=== PATIENT | female | born 1980 | race Caucasian/White ===

== ENCOUNTER 2021-11-28 17:30 | Inpatient (IN) | payer OTHER, SELFPAY ==
[2021-11-28] VITALS (13 sets, daily range): BP systolic 124–175; BP diastolic 70–107; PULSE 72–108; RESP 12–18; TEMP 36.5–37.2; O2SAT 98–100; BMI 45.2; BMI 43.1
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
[2021-11-28] MEDS: Ondansetron 4 MG/2 ML Vial IV (18:27)
[2021-11-28] MEDS: Morphine 4 MG/ML Syringe IV (18:27)
--- NOTE | 2021-11-28 18:33 | RAD_ITS ---
STUDY: LEFT ANKLE X-RAY SERIES OF 1830 HOURS ON 11/28/2021 REASON FOR EXAM: 41-year-old female with injury to left ankle. TECHNIQUE: 3 view(s) of the ankle. COMPARISON: None. FINDINGS: There is an oblique fracture of the distal left fibula at 8.7 cm proximal to the tip of the fibular head. There has been significant ligamentous injury of the ankle joint because the ankle mortise is unbalanced with 1.4 cm separation of the medial malleolus from the talus. There is no evidence of fractures of the distal tibia, talus, or calcaneus. Moderate circumferential soft tissue swelling is noted. RAD/Ankle min 3 Views IMPRESSION: 1. Oblique fracture of the distal left fibula at 8.7 cm proximal to the tip of the fibular head. 2. Significant ligamentous injury of the ankle joint that is unbalanced with 1.4 similar separation of the medial malleolus from the talus. 3. No evidence of fractures of the distal tibia, talus or calcaneus. 4. Moderate circumferential soft tissue swelling. Electronically Signed: Louie Peacock MD at 18:54 EDT ,
[2021-11-28] MEDS: 0.9% Normal Saline 1,000 ML 999 ML IV (20:55)
[2021-11-28] MEDS: fentaNYL 100 MCG/2 ML Ampul 50 MCG IV (20:57)
[2021-11-28] MEDS: Midazolam 5 MG/ML Syringe IV (20:57)
--- NOTE | 2021-11-28 21:46 | RAD_ITS ---
STUDY: LEFT ANKLE X-RAY SERIES OF 2126 HOURS ON 11/28/2021 REASON FOR EXAM: 41-year-old female status post reduction views of balanced ankle mortise and a distal fibular diaphyseal fracture. TECHNIQUE: 2 view(s) of the ankle. COMPARISON: None. FINDINGS: There has been interval reduction of the distal diaphyseal fibular fracture, which is now in anatomic position. The ankle mortise now appears to be balanced. There is no separation of the inside of the medial malleolus from the talus. The entire ankle is enveloped in cast material. RAD/Ankle 2 Views IMPRESSION: 1. Interval reduction of the distal diaphyseal fibular fracture--currently in anatomic position. 2. Ankle mortise is now balance. 3. Ankle is enveloped in cast material. Electronically Signed: Louie Peacock MD at 22:23 EDT ,
[2021-11-28] MEDS: Acetaminophen 325 MG Tablet 650 MG PO (23:37)
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
[2021-11-29] MEDS: oxyCODONE 5 MG Tablet PO ×4 (02:26→15:03)
[2021-11-29 03:00] VITALS: BP 136/63; PULSE 62; RESP 18; TEMP 36.2; O2SAT 100
[2021-11-29] MEDS: Acetaminophen 325 MG Tablet 650 MG PO ×3 (06:24→15:04)
[2021-11-29 07:08] VITALS: O2SAT 98
[2021-11-29 07:57] LABS: Absolute Lymphocyte Count 3.39 X10^3/uL (0.83-4.51); Absolute Neutrophil Count 4.1 X10^3/uL (2.0-7.7); Basophil# 0.03 X10^3/uL; Basophil% 0.4 % (0-1); Eosinophil# 0.18 X10^3/uL; Eosinophils% 2.2 % (0-5); Hematocrit 40.1 % (37-47); Hemoglobin 12.2 g/dL (12.0-15.0); Lymphocyte # 3.39 X10^3/ul (0.83-4.51); Lymphocyte % 40.8 % (19-41); Mean Corp Hgb Conc 30.4 g/dL (32-36); Mean Corpuscular Hgb 24.1 pg (27.0-32.0); Mean Corpuscular Volume 79.1 fL (81-99); Mean Platelet Vol. 10.8 fl (6.2-12.0); Monocyte# 0.54 X10^3/uL; Monocyte% 6.5 % (0-10); NRBC Flagged by Analyzer 0 % (0-5); Neutrophil # 4.14 X10^3/uL (2.7-7.7); Neutrophil % 49.9 % (47-70); Platelet Count 327 K/mm3 (150-450); RBC Distribution Width CV 16.3 % (11.6-14.6); RBC Distribution Width SD 46.6 fl (35.1-43.9); Red Blood Count 5.07 M/mm3 (4.2-5.4); White Blood Count 8.3 K/mm3 (4.4-11.0)
[2021-11-29 08:13] LABS: ALB/GLOB Ratio 0.8 RATIO (0.9-2.4); AST(SGOT) 18 U/L (15-37); Alanine Aminotransfer ALT/SGPT 20 U/L (13-56); Albumin, Serum 2.9 g/dL (3.2-5.0); Alkaline Phosphatase 99 U/L (45-117); Anion Gap 6 (5-15); BUN 7 mg/dL (7-18); BUN/Creat Ratio 11.5 RATIO (10-20); Calcium,Total 8.3 mg/dL (8.5-10.1); Chloride 109 mmol/L (98-107); Creatinine, Serum 0.61 mg/dL (0.55-1.02); EST Glomerular Filtration Rate 114 mL/min (>60); Est Glom Filt Rate - Afr Amer 138 mL/min (>60); Estimated Creatinine Clearance 103.75 ml/min; Globulin 3.8 g/dL (2.2-4.2); Glucose 88 mg/dL (74-106); Potassium 3.8 mmol/L (3.5-5.1); Protein, Total 6.7 g/dL (6.4-8.2); Sodium Level 140 mmol/L (136-145)
[2021-11-29 10:24] VITALS: BP 120/69; PULSE 70; RESP 16; TEMP 36.6; O2SAT 98
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
--- NOTE | 2021-11-29 12:31 | PCM.PN.HOSP ---
Subjective Subjective Patient was seen and examined today, I talked briefly with podiatry concerning the patient's care. Patient states that she has no chronic medical conditions and takes no prescription medications at home. Objective Data Objective Data Vital Signs: Vital Signs Temp Pulse Resp BP Pulse Ox O2 Del Method O2 Flow Rate 97.9 F 70 16 120/69 98 Room Air 2 11/29/21 10:11/29/21 10:11/29/21 10:11/29/21 10:11/29/21 10:11/29/21 10:11/28/21 21:21 Oxygen Flow Rate (L/min) [4] 2 Oxygen Flow Rate (L/min) [3] 2 Oxygen Flow Rate (L/min) [2] 2 Oxygen Flow Rate (L/min) 2 Oxygen Delivery Method [4] Nasal Cannula Oxygen Delivery Method [3] Nasal Cannula Oxygen Delivery Method [2] Nasal Cannula Oxygen Delivery Method [1 ( Room Air Initial Baseline)] Oxygen Delivery Method Room Air Weight: 114 kg Body Mass Index (BMI) 43.1 Intake & Output: Intake and Output for Last 24 Hours 11/27/21 11/28/21 11/29/21 23:59 23:59 23:59 Intake Total 1150 / 1150 200 / 200 Output Total 400 / 400 Balance 1150 / 1150 -200 / -200 Lab / Micro Data Result Diagrams: 11/29/21 06:30 11/29/21 06:30 Labs: Laboratory Results - last 24 hr 11/29/21 06:30: WBC 8.3, RBC 5.07, Hgb 12.2, Hct 40.1, MCV 79.1 L, MCH 24.1 L, MCHC 30.4 L, RDW Std Deviation 46.6 H, RDW Coeff of Stefany 16.3 H, Plt Count 327, MPV 10.8, Immature Gran % (Auto) 0.200, Neut % (Auto) 49.9, Lymph % (Auto) 40.8, [place] % (Auto) 6.5, Eos % (Auto) 2.2, Baso % (Auto) 0.4, Absolute Neuts (auto) 4.1, Absolute Lymphs (auto) 3.39, Nucleated RBC % 0 11/29/21 06:30: Sodium 140, Potassium 3.8, Chloride 109 H, Carbon Dioxide 25.0, Anion Gap 6, BUN 7, Creatinine 0.61, Estim Creat Clear Calc 103.75, Est GFR (MDRD) Af Amer 138, Est GFR (MDRD) Non-Af 114, BUN/Creatinine Ratio 11.5, Glucose 88, Calcium 8.3 L, Total Bilirubin 0.50, AST 18, ALT 20, Alkaline Phosphatase 99, Total Protein 6.7, Albumin 2.9 L, Globulin 3.8, Albumin/Globulin Ratio 0.8 L Radiography Diagnostic Testing: Radiology Impression Ankle X-Ray 11/28/21 18:33 IMPRESSION: 1. Oblique fracture of the distal left fibula at 8.7 cm proximal to the tip of the fibular head. 2. Significant ligamentous injury of the ankle joint that is unbalanced with 1.4 similar separation of the medial malleolus from the talus. 3. No evidence of fractures of the distal tibia, talus or calcaneus. 4. Moderate circumferential soft tissue swelling. Electronically Signed: Louie Peacock MD at 18:54 EDT , Ankle X-Ray 11/28/21 21:46 IMPRESSION: 1. Interval reduction of the distal diaphyseal fibular fracture--currently in anatomic position. 2. Ankle mortise is now balance. 3. Ankle is enveloped in cast material. Electronically Signed: Louie Peacock MD at 22:23 EDT , Physical Exam Const alert, oriented x3, no apparent distress and healthy appearing Constitutional Narrative: Patient is morbidly obese General Appearance: cooperative, well kempt and well developed Orientation / Consciousness: awake, oriented to person, oriented to place and oriented to time HEENT normocephalic and moist oral mucous membranes Eyes PERRL, EOMs intact bilaterally and conjunctivae normal Neck supple, no JVD and thyroid normal General: trachea midline Resp normal respiratory effort and clear to auscultation bilaterally Auscultation: Negative for rales, rhonchi or wheezes Cardio regular rate, regular rhythm, no murmurs, no rub and no gallops GI normal to inspection, nondistended, normoactive bowel sounds, soft to palpation, non-tender and non-distended Extremity Extremity Narrative: Patient has a splint in place over the left lower leg Skin no rashes or lesions noted General Skin Exam: no breakdown Neuro oriented x3, CN's II-XII intact bilaterally, no focal motor deficits and no sensory deficits noted Sensorium / Orientation: awake and alert Speech: speech normal Psych affect normal Assessment & Plan Assessment/Plan (1) Closed displaced bimalleolar fracture of left ankle: PLAN: Plan 1. Morbid obesity-makes care, recovery, management, and prognosis complicated #2 bimalleolar fracture of the left ankle-closed displaced-according to podiatry, it is likely that the patient's surgery will be put off due to swelling from the fracture, she may need to be discharged home with a walker and surgery will be scheduled in the near future. Charges/Coding Visit Charges Inpatient E&M: 98138 Subs Hosp L1
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
--- NOTE | 2021-11-29 13:31 | DS.PCM_ITS ---
Providers Date of Admission: 11/28/21 Date of Discharge: 11/29/21 Primary Care Physician: Dr. Yinka Mittal, DO Consultations 11/29/21 00:03 Consult: Hospitalist Routine Consulting Provider: Lurdes Dominguez Reason for Consult: medical management EMERGENT Consult: No MD Notified: Yes Date Notified: 11/28/21 Time Notified: 23:00 Method of Notification: Text Reason For Visit: LEFT ANKLE FRACTURE Diagnosis Discharge Diagnosis (1) Closed displaced bimalleolar fracture of left ankle: Status: Acute Code(s): S82.842A - Displaced bimalleolar fracture of left lower leg, initial encounter for closed fracture (2) Ankle pain, left: Status: Acute Code(s): M25.572 - Pain in left ankle and joints of left foot Plan Patient seen and evaluated Radiographs were reviewed with patient and I discussed the images and findings with them today. Patient has a displaced bimalleolar fracture of the left ankle. Oblique fibular fracture with disruption of the deltoid ligament m edially and likely syndesmotic injury. This was reduced and splinted in the ED 11/28/2021. She does have ecchymosis about the ankle and medial and lateral foot along with significant edema about the foot and ankle. I discussed with patient and her that with the significant amount of of edema about the ankle and foot that it is not recommended to perform surgical fixation immediately and it would be best to wait for the swelling to decrease prior to definitive surgical fixation. Patient and are in agreement with this. They were instructed to remain nonweightbearing to the left lower extremity with the use of walker or wheelchair. She may shower seated in a shower chair with use of a cast bag to keep the dressings clean, dry, and intact. She may apply ice behind the knee for pain control and elevate the left lower extremity at all times of rest with pillows placed under the foot and leg. Hospitalist has been consulted for any medical management, this is greatly appre ciated. Other than her ankle fracture and obesity she has no other health concerns. I discussed with hospitalist plan to discharge home with pain medication and follow-up in office for surgical discussion. He is in agreement. Physical therapist consulted for walker training and wheelchair to assist in ambulation at home. All questions were answered to patient's satisfaction Patient to be discharged home today and patient will follow-up in office with me later this week for surgical discussion and planning for ORIF of left ankle with syndesmotic repair. Dr. Crispin Nelson Jr. D.P.M. [facility] [phone] The problems addressed require a low medical decision making level which includes two or more minor problems, a stable chronic illness, or an acute uncomplicated illness or injury. The medical decision making level is low. There is noted low risk of morbidity after considering this treatment plan and diagnostic data. Note: [employer] ([employer] speech recognition song and dance performer software was used to create portions of this document. Sound-alike and misspelled words, as well as other song and dance performer errors may be contained in the documentation. Medications at Discharge Home Medications acetaminophen 325 mg capsule (Tylenol) 650 mg PO Q6H PRN pain 7 days #28 caps 11/29/21 oxycodone-acetaminophen 5 mg-325 mg tablet 1 tab PO Q6H PRN pain 7 days #28 tabs 11/29/21 Hospital Course Operations None Procedures None Summary of Care Provided Minutes Spent on Discharge: 25 Hospital Course: Patient was admitted to the hospital in the evening on 11/28/2021 for pain control following displaced bimalleolar fracture of the left lower extremity. She was seen in the ED where the fracture was reduced and splinted. Podiatry seen and evaluated bedside on 11/29/2021 and discussion with patient and regarding her fracture and significant swelling of the left lower extremity, no evidence of fracture blisters. I discussed with them that at this time it would be best to wait for her swelling to decrease prior to any definitive surgical in tervention. Her pain is well controlled this morning and she is in good spirits. Her and her are in agreement in waiting for swelling to decrease prior to surgical intervention. Hospitalist was consulted for medical management, hospitalist in agreement to await surgical intervention to allow the swelling to decrease. Physical therapy was consulted and a walker dispensed to patient for assistance in ambulation prior to discharge. Prescriptions were electronically sent to her pharmacy to manage pain while home. I discussed that she is to be nonweightbearing to the left lower extremity with the assistance of a walker and/or wheelchair. She is to place absolutely no weight to this foot or walk on this foot. She voices understanding of this. Discharge instructions to be sent home with patient outlining our discussion and plan. Patient to be discharged home with and several family members who will be able to aid and look after her this afternoon. Physical Exam Const alert, oriented x3, no apparent distress and well nourished General Appearance: cooperative and comfortable HEENT normocephalic Eyes General Eye: normal appearance of both eyes Neck full ROM General: normal visual inspection Lymph Lymphatic: no lymphadenopathy noted and no lymphedema noted Resp normal respiratory effort Cardio regular rate and regular rhythm GI normal to inspection, nondistended, normoactive bowel sounds Back/Spine no CVA tenderness and normal ROM Extremity Extremity Narrative: Left lower extremity: DP and PT pulses nonpalpable secondary to edema. Capillary refill time is brisk to the digits. Significant edema about the ankle extending into the foot distally. There is ecchymosis about the ankle, lateral foot, medial foot consistent with fracture of the fibula with disruption to the medial Deltoid ligament. No evidence of fracture blisters. No open wounds noted. Range of motion deferred secondary to pain and fracture. Right lower extremity DP and PT pulses are palpable. Capillary fill time is brisk to the digits. Full range of motion to the ankle joint, subtalar joint, and first metatarsophalangeal joint. General Extremity: Negative for calf tenderness Skin no rashes or lesions noted, skin turgor normal and no jaundice Skin Narrative: Left lower extremity skin intact with significant edema about the ankle extending into the foot distally. There is ecchymosis about the ankle, lateral foot, medial foot consistent with fracture of the fibula with disruption to the medial Deltoid ligament. No evidence of fracture blisters. No open wounds noted. Webspaces are C/D/I. Right lower extremity skin intact with no rashes or lesions, no subcutaneous noduels or erythema, no ecchymosis, no open wounds. Webspaces C/D/I. Neuro oriented x3 and moves all extremities Psych cooperative and affect normal Weight / BMI Weight Weight: 114 kg Body Mass Index (BMI) 43.1 ABG / Lab / Microbiology Data Result Diagrams: 11/29/21 06:30 11/29/21 06:30 Laboratory: Laboratory Results - last 24 hr 11/29/21 06:30: WBC 8.3, RBC 5.07, Hgb 12.2, Hct 40.1, MCV 79.1 L, MCH 24.1 L, MCHC 30.4 L, RDW Std Deviation 46.6 H, RDW Coeff of Stefany 16.3 H, Plt Count 327, MPV 10.8, Immature Gran % (Auto) 0.200, Neut % (Auto) 49.9, Lymph % (Auto) 40.8, Webster % (Auto) 6.5, Eos % (Auto) 2.2, Baso % (Auto) 0.4, Absolute Neuts (auto) 4.1, Absolute Lymphs (auto) 3.39, Nucleated RBC % 0 11/29/21 06:30: Sodium 140, Potassium 3.8, Chloride 109 H, Carbon Dioxide 25.0, Anion Gap 6, BUN 7, Creatinine 0.61, Estim Creat Clear Calc 103.75, Est GFR (MDRD) Af Amer 138, Est GFR (MDRD) Non-Af 114, BUN/Creatinine Ratio 11.5, Glucose 88, Calcium 8.3 L, Total Bilirubin 0.50, AST 18, ALT 20, Alkaline Phosphatase 99, Total Protein 6.7, Albumin 2.9 L, Globulin 3.8, Albumin/Globulin Ratio 0.8 L Radiography Diagnostic Testing: Radiology Impression Ankle X-Ray 11/28/21 18:33 IMPRESSION: 1. Oblique fracture of the distal left fibula at 8.7 cm proximal to the tip of the fibular head. 2. Significant ligamentous injury of the ankle joint that is unbalanced with 1.4 similar separation of the medial malleolus from the talus. 3. No evidence of fractures of the distal tibia, talus or calcaneus. 4. Moderate circumferential soft tissue swelling. Electronically Signed: Louie Peacock MD at 18:54 EDT Reading Location ID and State: [facility] / [place] Tel , Service support , Ankle X-Ray 11/28/21 21:46 IMPRESSION: 1. Interval reduction of the distal diaphyseal fibular fracture--currently in anatomic position. 2. Ankle mortise is now balance. 3. Ankle is enveloped in cast material. Electronically Signed: Louie Peacock MD at 22:23 EDT Reading Location ID and State: [facility] / [place] Tel , Service support , D/C Instructions Discharge Diet: No restrictions Discharge Activity: May Shower (with cast bag covering left lower extremity. Keep clean, dry, and intact) and Use Walker (Non-weight bearing to the Left lower extremity with use of walker/wheelchair for assistance) Weight Bearing Status: No weight bearing ( Non-weight bearing to Left lower extremity. Use of walker or wheelchair for assistance in ambulation.) Keep extremity elevated above heart level: Left Leg (Elevate left lower extre mity at all times of rest with pillows below the leg to offload. May apply ice behind knee to aid in pain control) Call your doctor if you observe: Numbness or Tingling, Chest pain and Uncontrolled pain Change Dressing in: do not change dressing (Leave dressing clean, dry, and intact to the left lower extremity) Remove Dressing in: do not remove dressing Cleanse incision/area with: Keep Dressing Clean & Dry Please Follow Up With: Crispin Nelson DPM When: Call for an appointment in office this week [phone] Meaningful Use Info Meaningful Use Diagnoses (Choose all that apply): None applicable Discharge Plan Admission Admit Date/Time: 11/28/21 23:17 Primary Reason for Your Visit: Displaced bimalleolar fracture of the Left lower leg Attending Provider: Maxi Rivas Primary Care Provider: Yinka Mittal Consulting Providers: Crispin Nelson ; Lurdes Dominguez Discharge Orders/Prescriptions Prescriptions: New oxycodone-acetaminophen 5-325 mg tablet 1 tab PO Q6H PRN (Reason: pain) 7 Days Qty: 28 0RF acetaminophen [Tylenol] 325 mg capsule 650 mg PO Q6H PRN (Reason: pain) 7 Days Qty: 28 0RF Rx Instructions: May take as needed for pain between doses of scheduled oral pain medication. Referrals / Follow Up: Crispin Nelson DPM [STAFF PHYSICIAN] - See Referral Note (Call to schedule appointment in office this week) Yinka Mittal DO [Primary Care Provider] - Disposition Disposition (needs filled in before D/C Order can be placed): Home, Self Care
--- NOTE | 2021-11-29 14:01 | DCINST_ITS ---
Discharge Instructions Diet Discharge Diet: No restrictions Activity Discharge Activity: - (Nonweightbearing left lower extremity) Weight Bearing Status: No weight bearing ( Non-weight bearing to Left lower extremity. Use of walker or wheelchair for assistance in ambulation.) Keep extremity elevated above heart level: Left Leg (Elevate left lower extremity at all times of rest with pillows below the leg to offload. May apply ice behind knee to aid in pain control) Dressing / Incision Call your doctor if you observe: Numbness or Tingling, Chest pain and Uncontrolled pain Cleanse incision/area with: Keep Dressing Clean & Dry Follow Up Care Please Follow Up With: Crispin Nelson DPM Test Results: Test results from this visit will be discussed in further detail at your follow- up appointment, if applicable. Discharge Plan Admission Admit Date/Time: 11/28/21 23:17 Primary Reason for Your Visit: Displaced bimalleolar fracture of the Left lower leg Attending Provider: Maxi Rivas Primary Care Provider: Yinka Mittal Consulting Providers: Crispin Nelson ; Lurdes Dominguez Discharge Orders/Prescriptions Prescriptions: New oxycodone-acetaminophen 5-325 mg tablet 1 tab PO Q6H PRN (Reason: pain) 7 Days Qty: 28 0RF acetaminophen [Tylenol] 325 mg capsule 650 mg PO Q6H PRN (Reason: pain) 7 Days Qty: 28 0RF Rx Instructions: May take as needed for pain between doses of scheduled oral pain medication. Referrals / Follow Up: Crispin Nelson DPM [STAFF PHYSICIAN] - See Referral Note (Call to schedule appointment in office this week) Yinka Mittal DO [Primary Care Provider] - Disposition Disposition (needs filled in before D/C Order can be placed): Home, Self Care
--- NOTE | 2021-11-29 14:03 | PCM.TXEXTCAR ---
Diet Diet Order/Speech Therapy: 11/28/21 23:19 Diet: Regular - General Is pt able to select menu?: No Wound(s) lt ankle: Wound Type: fx Therapies Weight Bearing: Non weight bearing Problem/Diagnosis (1) Closed displaced bimalleolar fracture of left ankle: Status: Acute Code(s): S82.842A - Displaced bimalleolar fracture of left lower leg, initial encounter for closed fracture (2) Ankle pain, left: Status: Acute Code(s): M25.572 - Pain in left ankle and joints of left foot Plan Patient seen and evaluated Radiographs were reviewed with patient and I discussed the images and findings with them today. Patient has a displaced bimalleolar fracture of the left ankle. Oblique fibular fracture with disruption of the deltoid ligament medially and likely syndesmotic injury. This was reduced and splinted in the ED 11/28/2021. She does have ecchymosis about the ankle and medial and lateral foot along with significant edema about the foot and ankle. I discussed with patient and her that with the significant amount of of edema about the ankle and foot that it is not recommended to perform surgical fixation immediately and it would be best to wait for the swelling to decrease prior to definitive surgical fixation. Patient and are in agreement with this. They were instructed to remain nonweightbearing to the left lower extremity with the use of walker or wheelchair. She may shower seated in a shower chair with use of a cast bag to keep the dressings clean, dry, and intact. She may apply ice behind the knee for pain control and elevate the left lower extremity at all times of rest with pillows placed under the foot and leg. Hospitalist has been consulted for any medical management, this is greatly appreciated. Other than her ankle fracture and obesity she has no other health concerns. I discussed with hospitalist plan to discharge home with pain medication and follow-up in office for surgical discussion. He is in agreement. Physical therapist consulted for walker training and wheelchair to assist in ambulation at home. All questions were answered to patient's satisfaction Patient to be discharged home today and patient will follow-up in office with me later this week for surgical discussion and planning for ORIF of left ankle with syndesmotic repair. Dr. Crispin Nelson Jr. D.P.M. [facility] [phone] The problems addressed require a low medical decision making level which includes two or more minor problems, a stable chronic illness, or an acute uncomplicated illness or injury. The medical decision making level is low. There is noted low risk of morbidity after considering this treatment plan and diagnostic data. Note: [employer] speech recognition product development engineer software was used to create portions of this document. Sound-alike and misspelled words, as well as other product development engineer errors may be contained in the documentation. Allergies/Procedures Done in Hospital Allergies No Known Allergies Allergy (Verified 11/28/21 17:31) Follow Up Care Please Follow Up With: Crispin Nelson DPM Discharge Plan Admission Admit Date/Time: 11/28/21 23:17 Primary Reason for Your Visit: Displaced bimalleolar fracture of the Left lower leg Attending Provider: Maxi Rivas Primary Care Provider: Yinka Mittal Consulting Providers: Crispin Nelson ; Lurdes Dominguez Discharge Orders/Prescriptions Prescriptions: New oxycodone-acetaminophen 5-325 mg tablet 1 tab PO Q6H PRN (Reason: pain) 7 Days Qty: 28 0RF acetaminophen [Tylenol] 325 mg capsule 650 mg PO Q6H PRN (Reason: pain) 7 Days Qty: 28 0RF Rx Instructions: May take as needed for pain between doses of scheduled oral pain medication. Referrals / Follow Up: Crispin Nelson DPM [STAFF PHYSICIAN] - See Referral Note (Call to schedule appointment in office this week) Yinka Mittal DO [Primary Care Provider] - Disposition Disposition (needs filled in before D/C Order can be placed): Home, Self Care
[2021-11-29 15:26] VITALS: BP 147/87; PULSE 76; RESP 18; TEMP 36.7; O2SAT 99
== END 2021-11-29 16:15 | disposition home or self-care (01) | DRG 563 ==
LOC: ED 19:16 → MS3 21:28
PROVIDERS: Family Medicine; Admitting Provider Student in an Organized Health Care Education/Training Program; Emergency Provider Emergency Medicine; PCP Family Medicine; Visit Provider Internal Medicine
DX: S82.842A Displaced bimalleolar fracture of left lower leg, initial encounter for closed fracture (principal); Z68.41 Body mass index [BMI] 40.0-44.9, adult; E66.01 Morbid (severe) obesity due to excess calories; S93.422A Sprain of deltoid ligament of left ankle, initial encounter; X50.1XXA Overexertion from prolonged static or awkward postures, initial encounter; Y93.89 Activity, other specified; Y99.8 Other external cause status; R03.0 Elevated blood-pressure reading, without diagnosis of hypertension
CPT/HCPCS: 36415; 73600; 73610; 80053; 85025; 97162; 97165; 99152; 99285; J7030; J2405

== ENCOUNTER → 2021-12-03 | Outpatient (CLI) | payer OTHER, SELFPAY ==
[2021-12-03 10:19] LABS: Absolute Lymphocyte Count 2.94 X10^3/uL (0.83-4.51); Absolute Neutrophil Count 6.4 X10^3/uL (2.0-7.7); Basophil# 0.06 X10^3/uL; Basophil% 0.6 % (0-1); Eosinophil# 0.24 X10^3/uL; Eosinophils% 2.3 % (0-5); Hematocrit 40.9 % (37-47); Hemoglobin 12.7 g/dL (12.0-15.0); Lymphocyte # 2.94 X10^3/ul (0.83-4.51); Lymphocyte % 28.7 % (19-41); Mean Corp Hgb Conc 31.1 g/dL (32-36); Mean Corpuscular Hgb 24.6 pg (27.0-32.0); Mean Corpuscular Volume 79.3 fL (81-99); Mean Platelet Vol. 10.1 fl (6.2-12.0); Monocyte# 0.54 X10^3/uL; Monocyte% 5.3 % (0-10); NRBC Flagged by Analyzer 0 % (0-5); Neutrophil # 6.44 X10^3/uL (2.7-7.7); Neutrophil % 62.7 % (47-70); Platelet Count 337 K/mm3 (150-450); RBC Distribution Width CV 16.6 % (11.6-14.6); RBC Distribution Width SD 47.1 fl (35.1-43.9); Red Blood Count 5.16 M/mm3 (4.2-5.4); White Blood Count 10.3 K/mm3 (4.4-11.0)
[2021-12-03 10:52] LABS: ALB/GLOB Ratio 0.7 RATIO (0.9-2.4); AST(SGOT) 34 U/L (15-37); Alanine Aminotransfer ALT/SGPT 72 U/L (13-56); Alkaline Phosphatase 179 U/L (45-117); Anion Gap 3 (5-15); BUN 13 mg/dL (7-18); Calcium,Total 8.8 mg/dL (8.5-10.1); Chloride 105 mmol/L (98-107); Creatinine, Serum 0.76 mg/dL (0.55-1.02); EST Glomerular Filtration Rate 88 mL/min (>60); Est Glom Filt Rate - Afr Amer 106 mL/min (>60); Globulin 4.1 g/dL (2.2-4.2); Glucose 105 mg/dL (74-106); Potassium 4.1 mmol/L (3.5-5.1); Protein, Total 7.1 g/dL (6.4-8.2); Sodium Level 136 mmol/L (136-145)
== END | disposition home or self-care (01) ==
PROVIDERS: PCP Family Medicine; Referring Provider Family Medicine; Visit Provider Family Medicine
DX: Z01.812 Encounter for preprocedural laboratory examination (principal)
CPT/HCPCS: 36415; 80053; 85025

== ENCOUNTER 2021-12-09 10:39 | Day surgery (SDC) | payer SELFPAY, OTHER ==
[2021-12-09] VITALS (10 sets, daily range): BP systolic 102–152; BP diastolic 65–93; PULSE 72–101; RESP 16–18; TEMP 36.4–37; O2SAT 92–100; BMI 41.1
[2021-12-09] MEDS: 0.9% Normal Saline 1,000 ML 80 ML IV (11:33)
--- NOTE | 2021-12-09 11:40 | SUR.PREOP ---
THIS NURSE CALLED INPATIENT PHARMACY, AND SPOKE TO DIPTI THE PHARMACIST TO CLARIFY THE CEFAZOLIN ORDER THAT WAS WRITTEN FOR 3 GM, BUT WAS INTERCHANGED TO 2 GMS D/T PATIENT'S WEIGHT BEING BELOW 120 KG. DIPTI SAID THAT PER [facility] POLICY THEY ARE ALLOWED TO DO A THERAPEUTIC INTERCHANGE WITHOUT CONSULTING THE PHYSICIAN.
--- NOTE | 2021-12-09 12:09 | DCINST_ITS ---
Discharge Instructions Diet Discharge Diet: No restrictions Activity Discharge Activity: Use Walker (Nonweightbearing left lower extremity with assistance of walker/wheelchair) Weight Bearing Status: No weight bearing (Nonweightbearing left lower extremity with assistance of walker/wheelchair) Keep extremity elevated above heart level: Left Leg (Elevate left lower extremity at all times of rest with pillows placed under leg/foot) Dressing / Incision Call your doctor if you observe: Fever of 101 or Higher, Chest pain, Calf discomfort and Uncontrolled pain Change Dressing in: do not change dressing (Leave dressings clean, dry, and intact to left lower leg/foot) Remove Dressing in: do not remove dressing (Leave dressings clean, dry, and intact to left foot. Physician will change dressings at first postoperative visit) Cleanse incision/area with: Do not get Incision Wet (May shower with cast bag ov er the left lower leg seated on shower chair nonweightbearing to left lower leg) and Keep Dressing Clean & Dry Follow Up Care Please Follow Up With: Crispin Nelson DPM When: Patient has scheduled first postoperative appointment in office Test Results: Test results from this visit will be discussed in further detail at your follow- up appointment, if applicable. Discharge Plan Admission Primary Reason for Your Visit: Displaced bimalleolar fracture left lower extremity Attending Provider: Crispin Nelson Primary Care Provider: Yinka Mittal Discharge Orders/Prescriptions Prescriptions: New oxycodone-acetaminophen 5-325 mg tablet 1 tab PO Q6H PRN (Reason: pain) 7 Days Qty: 28 0RF doxycycline hyclate 100 mg tablet 100 mg PO DAILY 10 Days Qty: 10 0RF aspirin 325 mg tablet 325 mg PO DAILY 20 Days Qty: 20 0RF No Action oxycodone-acetaminophen 5-325 mg tablet 1 tab PO Q6H PRN (Reason: pain) 7 Days Qty: 28 0RF acetaminophen [Tylenol] 325 mg capsule 650 mg PO Q6H PRN (Reason: pain) 7 Days Qty: 28 0RF Rx Instructions: May take as needed for pain between doses of scheduled oral pain medication. Referrals / Follow Up: Yinka Mittal DO [Primary Care Provider] - Crispin Nelson DPM [STAFF PHYSICIAN] - Disposition Disposition (needs filled in before D/C Order can be placed): Home, Self Care
[2021-12-09] MEDS: Cefazolin 2 GM in 0.9% Normal Saline 100 ML IV (12:40)
--- NOTE | 2021-12-09 12:55 | RAD_ITS ---
STUDY: X-RAY - LEFT ANKLE REASON FOR EXAM: Female, 41 years old. Fracture. TECHNIQUE: 16 intraoperative view(s) of the ankle. 4.37 seconds of fluoroscopy utilized COMPARISON: Ankle, 11/29/2021. FINDINGS: The provided images demonstrate placement of a plate and screws long while aspect of the distal fibula. The fracture is in normal alignment. There is evidence of surgical fusion of the distal tibia fibula. Ankle mortise is preserved. Please refer to the operative report for further details. RAD/Ankle 2 Views IMPRESSION: Fluoroscopy provided in the OR during the internal fixation of a left ankle fracture. Electronically Signed: Neville Govea DO at 23:49 EDT ,
[2021-12-09] MEDS: Lidocaine 1% (20 ml mdv) 20 ML Vial ×2 (13:12→14:33)
[2021-12-09] MEDS: Bupivacaine 0.25% 30 ML Vial (14:33)
--- NOTE | 2021-12-09 15:30 | RAD_ITS ---
STUDY: X-RAY - LEFT ANKLE REASON FOR EXAM: Female, 41 years old. Post op, internal fixation of an ankle fracture. TECHNIQUE: 3 view(s) of the ankle. COMPARISON: 11/28/2021 and 12/09/2021. FINDINGS: There is now a plate and screws along lateral aspect distal fibula. The fibular fracture is in normal alignment. There is evidence of a tibiotalar fusion. The ankle mortise is intact. Normal visualized talus and calcaneus. The visualized subtalar, talonavicular, calcaneocuboid and tarsal articulations are normal. Soft tissues are partially obscured by a semiopaque splint. RAD/Ankle min 3 Views IMPRESSION: Status post internal fixation of a left ankle fracture. Electronically Signed: Neville Govea DO at 17:08 EDT ,
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
[2021-12-09] MEDS: Ketorolac 30 MG/ML Syringe IV ×2 (15:57→16:05)
== END 2021-12-09 18:16 | disposition home or self-care (01) ==
LOC: SDC 10:43 → AC 10:43
PROVIDERS: PCP Family Medicine; Referring Provider Student in an Organized Health Care Education/Training Program; Visit Provider Student in an Organized Health Care Education/Training Program
PROC: (CPT 27814; principal; 2021-12-09 12:10)
DX: S82.842A Displaced bimalleolar fracture of left lower leg, initial encounter for closed fracture (principal); E66.01 Morbid (severe) obesity due to excess calories; Z68.41 Body mass index [BMI] 40.0-44.9, adult; S82.432A Displaced oblique fracture of shaft of left fibula, initial encounter for closed fracture; S93.432A Sprain of tibiofibular ligament of left ankle, initial encounter; X50.1XXA Overexertion from prolonged static or awkward postures, initial encounter; Y93.55 Activity, bike riding; Y99.8 Other external cause status
CPT/HCPCS: 27814; 27829; 01480; 64445; 73600; 73610; 76000; C1713; J7030; J2405